=== PATIENT | male | born 1990 | race Caucasian/White ===

== ENCOUNTER 2017-11-04 21:50 | Emergency (ER) | payer OTHER ==
[~2017-11-04] VITALS: Ht 185.4 cm; Wt 91.0 kg
[~2017-11-04 21:50] MED LIST: CLINDAMYCIN HC300 MG PO; NOHOMEMEDS; PERCOCET 5/31 TABLET PO; ZYRTEC10 M2 PO
[2017-11-04] MEDS ORDERED: NORCO 5/3251 TABLET PO (23:16)
[2017-11-04] MEDS ORDERED: AUGMENTIN875 MG PO (23:16)
[2017-11-05] VITALS: BP 113/81
== END 2017-11-05 00:01 | disposition home or self-care (01) ==
LOC: EXP 21:50 → EME 21:50 → EXP 11-05 00:01
DX: S61.451A Open bite of right hand, initial encounter (principal); S61.452A Open bite of left hand, initial encounter; W54.0XXA Bitten by dog, initial encounter; Z23 Encounter for immunization; F17.200 Nicotine dependence, unspecified, uncomplicated
CPT/HCPCS: 73130; 99281; 99284; J3010

== ENCOUNTER 2017-12-07 01:59 | Emergency (ER) | payer OTHER ==
[~2017-12-07] VITALS: Ht 185.4 cm; Wt 93.2 kg
[~2017-12-07 01:59] MED LIST changes: +AUGMENTIN875 MG PO; +NORCO 5/3251 TABLET PO
[2017-12-07 03:17] LABS: HEMATOCRIT 40.1 % (38.0-50.0); MCH 31.5 PG (29.0-34.0); MCHC 34.9 G/DL (30.0-36.0); MCV 90.1 FL (86-99); PLATELET COUNT 249 K/uL (156-360); RBC DIS.WIDTH-CV 13.7 % (11.8-14.6); RBC DIS.WIDTH-SD 45.5 % (39-53); RED BLOOD COUNT 4.45 M/uL (4.00-5.50); WHITE BLOOD COUNT 14.4 K/uL (4.1-10.2)
[2017-12-07 03:26] LABS: ALBUMIN 4.1 g/dL (3.2-4.8); CHLORIDE 106 mEq/L (99-109); POTASSIUM 3.8 mEq/L (3.7-5.4); SODIUM 140 mEq/L (136-147)
[2017-12-07 03:28] LABS: GLUCOSE 121 mg/dL (70-99); TOTAL PROTEIN 6.6 g/dL (6.4-8.3)
[2017-12-07 03:30] LABS: TOTAL BILIRUBIN 0.5 mg/dL (0.0-1.0)
[2017-12-07 03:32] LABS: ALKALINE PHOSPHATASE 76 IU/L (3-129); CREATININE 1.2 mg/dL (0.6-1.3); GFR ESTIMATE (CALCULATED) > 59 mL/min/ (58.99-99999)
[2017-12-07 03:33] LABS: AST (GOT) 17 IU/L (2-34); UREA NITROGEN (BUN) 18 mg/dL (9-23)
[2017-12-07 03:35] LABS: ALT (GPT) 20 IU/L (3-49)
[2017-12-07] MEDS ORDERED: AUGMENTIN875 MG PO (04:29)
[2017-12-07] MEDS ORDERED: PERCOCET 5/31 TABLET PO (04:29)
[2017-12-07 05:11] VITALS: BP 144/72
== END 2017-12-07 05:11 | disposition home or self-care (01) ==
LOC: EME 01:59
PROVIDERS: Physician Assistant
PROC: 2W3DX1Z Immobilization of Left Lower Arm using Splint (ICD-10-PCS; principal; 2017-12-07)
DX: S62.112A Displaced fracture of triquetrum [cuneiform] bone, left wrist, initial encounter for closed fracture (principal); S61.532A Puncture wound without foreign body of left wrist, initial encounter; F17.200 Nicotine dependence, unspecified, uncomplicated; W54.0XXA Bitten by dog, initial encounter
CPT/HCPCS: 73110; 80053; 85027; 99281; 99283; J0295; J2270; J2405; J7030; J7050; S0020